=== PATIENT | male | born 1995 | race Caucasian/White ===

== ENCOUNTER 2017-01-24 03:36 | Emergency (ER) | payer OTHER ==
[2017-01-24] MEDS ORDERED: Ibuprofen 800 MG TAB ONE (03:56)
== END 2017-01-24 04:05 | disposition home or self-care (01) ==
LOC: ERS 03:36
DX: S29.012A Strain of muscle and tendon of back wall of thorax, initial encounter (principal); E11.649 Type 2 diabetes mellitus with hypoglycemia without coma; J45.909 Unspecified asthma, uncomplicated; F90.9 Attention-deficit hyperactivity disorder, unspecified type; F31.9 Bipolar disorder, unspecified; W11.XXXA Fall on and from ladder, initial encounter
CPT/HCPCS: 99283

== ENCOUNTER 2017-03-08 21:10 | Emergency (ER) | payer OTHER ==
[2017-03-08] MEDS ORDERED: Ketorolac Tromethamine 30 MG/ML VIAL ONE (22:27)
[2017-03-08] MEDS ORDERED: diphenhydrAMINE 50 MG/ML VIAL ONE (22:27)
[2017-03-08] MEDS ORDERED: Metoclopramide HCl 10 MG/2 ML VIAL ONE (22:27)
== END 2017-03-09 00:15 ==
LOC: ERS 21:10
DX: E86.0 Dehydration (principal); R51 Headache; R11.2 Nausea with vomiting, unspecified; E11.9 Type 2 diabetes mellitus without complications; J45.909 Unspecified asthma, uncomplicated; F90.9 Attention-deficit hyperactivity disorder, unspecified type; F31.9 Bipolar disorder, unspecified
CPT/HCPCS: 96365; 96375; J1200; J1885; J2765